=== PATIENT | female | born 2000 | race Hispanic/Latino ===

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

== ENCOUNTER 2020-05-23 19:54 | Inpatient (IN) | payer OTHER, SELFPAY ==
[~2020-05-23 19:54] MED LIST changes: +Bupivacaine HCl 0.25%/Epi 0.0005/PF 10 ML VIAL FS ONE; -Bupivacaine/Epinephrine 0.25% 30 ML VIAL ONE; +Sodium Chloride 0.9% (PF) 10 ML VIAL ONE
[2020-05-23 20:27] VITALS: BMI 27.8
[2020-05-23] MEDS ORDERED: hydrALAZINE 20 MG/ML VIAL SLOW IVP PRN (21:13)
--- NOTE | 2020-05-23 21:26 | PDOC.FPROB ---
FMR OB H&P: HPI - History of Present Illness Chief Complaint: Vaginal Bleeding History of Present Illness: Patient is a 19 year old, @ 37.5 weeks by LMP/27.6 week sono, LOR[place] 06/08/2019, PMHx of Late to care, Anemia of , VAVD and A1GDM who presents with complaints of bloody spotting that started 45 minutes TPA, accompanied by brownish discharge that started a few hours ago, and contractions x 2 days that became every 5-6 minutes this morning. She states that she has not had sex for 5 days. She has been feeling baby moving, denies loss of fluid. She has no history of STIs. Primary Care Physician: MARYAM Maxwell FMR OB H&P: Current - Care : 2 Para: 1 Gestational age: 37.5 weeks Due date: 06/08/2019 Dating Criteria: LMP/27.6 week US - OB Labs Blood type: O RH: positive Antibody Screen: negative HIV: negative RPR: negative HepBsAg: negative Rubella: non-immune Gonorrhea: negative Chlamydia: negative 3 hour GTT: 95/186/144 GBS: negative H&H: 35.7 Platelets: 229 - Additional Ultrasound Additional: 04/27/2020: normal follow up anatomic survery, current growth wnl for gestational age and measures 60th percentile, normal AF volume, BPP 8/8, placental location anterior - no signs of accreta/previa are seen FMR OB H&P: History - Past Medical History PMH: asthma (last used inhaler 2 years ago) COVID + 12/2019. - OB History OB History: VAVD at 40 weeks, October of 2018 - Surgical History Sx History: none - Social History Social History: no asthma, FMR OB H&P: Medications - Current Home Medications: Medication Instructions Recorded Confirmed Type Vitamin 1 tab PO DAILY #30 tab 11/14/18 Rx Allergies/Adverse Reactions: Allergies Allergy/AdvReac Type Severity Reaction Status Date / Time No Known Allergies Allergy Verified 05/23/20 20:23 FMR OB H&P: ROS - Review of Systems General: denies: fever/chills Eyes: denies: eye pain, vision changes ENT: denies: nasal congestion, rhinorrhea Cardiovascular: denies: chest pain, palpitation, edema Respiratory: denies: congestion Gastrointestinal: denies: abdominal pain, indigestion, nausea, vomiting, diarrhea, constipation Genitourinary (Female): reports: vaginal discharge, vaginal bleeding, contractions. denies: incontinence, dysuria Musculoskeletal: denies: pain, stiffness Neurologic: denies: numbness, syncope, weakness, headache Integumentary: denies: itching, rash Endocrine: denies: cold intolerance, heat intolerance Hematologic/Lymphatic: denies: prolonged or excessive bleeding, enlarged lymph nodes Psychological: denies: depression, anxiety FMR OB H&P: Vital Signs - Maternal Vital signs: BP 118/56, HR 79bpm, temp 98.5F - Heart Tones Baseline: 130 Variability: moderate Acceleration: present Deceleration: absent Category: category 1 [place] contractions every: 2-3 min FMR OB H&P: Physical Exam - Physical Exam General: NAD, awake, alert and oriented HEENT: normocephalic and atraumatic, PERRLA, EOMI, MMM Neck: supple, FROM Chest: non-tender to palpation Breast: symmetric, non-tender Heart: RRR, normal S1/S2, no murmurs/rubs/gallops General: CTAB, no respiratory distress Abdomen: soft, gravid Musculoskeletal: normal gait and station, pulses present Neurological: no tremor, no focal deficit Skin: no rash, good tugor Lymphatic: no unusual bruising or bleeding, no purpura Psychiatric: intact recent and remote memory, good judgement and insight, normal mood and affect - Pelvic Exam Deviation from normal: bloody show SVE: /-2 Membranes: intact Presentation: cephalic FMR OB H&P: A/P Disposition: Patient is a 19 year old, @ 37.5 weeks by LMP/27.6 week sono, LOR[place] 06/08/2019 who presents due to vaginal bleeding and accompanying contractions. Latent Labor, sIUP IOB labs reviewed, STI screening neg, Hep C neg, GBS neg /-2 @ 0930 Cat I strip, FHTs 130, +accels, -decels - continue monitoring - will recheck in 4-6 hours Vaginal Bleeding of Unknown Source Suspected 2/2 cervical change US 04/2604/27/2020: placental location anterior - no signs of accreta/previa are seen - continue monitoring A1GDM well-controlled at home - will get POC glucose Hx VAVD - aware TB risk - Recommended screening at HD Hx COVID 13 Jan 2020 - aware Discussion: Date/Time: 05/23/202125 This H&P was discussed with Dr. Francisco who agrees with the above documentation and plan.
[2020-05-23] MEDS ORDERED: Promethazine HCl 25 MG/ML VIAL IM PRN (21:49)
[2020-05-23] MEDS ORDERED: Ondansetron PF 4 MG/2 ML Vial IVP PRN (21:49)
--- NOTE | 2020-05-23 21:51 | PDOC.BPN ---
- Brief Progress Note OBGYN Flower Machine Operator: Patient seen and examined by me. See H&P. Admission to L&D.
--- NOTE | 2020-05-23 22:18 | HP ---
LOCATION: Triage A. The patient was evaluated at roughly 2129, it is now 2145. This is a patient of Clinic. The residents were the first to evaluate, and I have seen the patient and examined the patient myself at bedside. CHIEF COMPLAINT: Vaginal bleeding at 37 weeks and 5 days. HISTORY OF PRESENT ILLNESS: This is a 19-year-old, G2, P1, who is at 37 weeks and 5 days, who goes to the Clinic. She has a history of gestational diabetes and it is diet-controlled (A1). She had late entry to care with this , first receiving care at 27 weeks, and an ultrasound done at 27 weeks confirmed the last menstrual period, although it was close to the third trimester when it was done. She states that she has had some vaginal spotting and then brownish discharge and then very slight vaginal bleeding, and she has also noted some contractions since this afternoon. She last had intercourse about five days ago, and denies any leakage of fluid or recent trauma. She has good movement. She states the contractions are about every 5-6 minutes in the upper fundus and lower pelvis. She denies any other fevers or other issues. REVIEW OF SYSTEMS: GENERAL: No sick contacts. No fever or chills. CARDIOVASCULAR: No chest pain. PULMONARY: No shortness of breath. EXTREMITIES: No lower extremity unusual edema/swelling or pain. PAST OB HISTORY: She is a G2, P1, with a last delivery last year at 40 weeks with a vacuum extraction. PAST MEDICAL HISTORY: Remote history of asthma, but she has not used an inhaler for over two years. MEDICATIONS: vitamins. ALLERGIES: NONE. PAST SURGICAL HISTORY: None. SOCIAL HISTORY: Negative for alcohol, tobacco, or drug use. PHYSICAL EXAMINATION: VITAL SIGNS: Show a blood pressure of 118/56, pulse of 79, temperature of 98.5. GENERAL: She is in no acute distress. ABDOMEN: Gravid and soft. PELVIC: I performed a cervical exam and find her to be 2-3 cm dilated, about 50% effaced, -2 station. Bag of water intact, and the baby is cephalic. There is a slight amount of vaginal bleeding in the perineum, which is bright red, but there were no clots in the vagina, and I was not able to elicit any bleeding on the examination. I performed a vaginal examination because the 27-week ultrasound, per record, did not mention any previa. External monitor showed heart rate around 130-140 with moderate variability. I performed an abdominal rock with positive acceleration, and the baby had an acceleration with my vaginal examination. Kimberlyn had checked her before me and called her 2 cm dilated, 75% effaced, -2 station. This was done by the RN. LABORATORY DATA: lab review: She is GBS negative. ASSESSMENT: This is a 19-year-old, G2, P1, at 37 weeks and 5 days by a 27-week ultrasound, who has gestational diabetes, diet controlled, who is here for vaginal bleeding, NOS. I suspect early labor and I suspect the bleeding is coming from cervical change, although I cannot rule out a slight possibility of marginal placental separation. I have explained both of these to the patient at bedside. PLAN: 1. Admit to Labor and Delivery. 2. As she is chucky, we will hold off on Pitocin because I think she is laboring. 3. If she needs Pitocin, we will augment as long as she meets protocol criteria (number of contractions per 10 minutes, and as long as the FHTs are reassuring). 4. Plan reviewed with the Clinic residents on-call. Job ID: [id number] MTDD
--- NOTE | 2020-05-23 22:20 | PDOC.BPN ---
- Brief Progress Note Informed by Dr Richards (resident) that the patient was COVID pos Dec 2019. Noted.
[2020-05-23 22:51] LABS: Hemoglobin 13.3 g/dL (12.0-16.0); Mean Corpuscular HGB CONC 33.1 g/dL (32.0-36.0); Mean Corpuscular Hemoglobin 31.3 pg (25.0-35.0); Mean Corpuscular Volume 94.5 fL (78.0-98.0); Mean Platelet Volume 9.6 fL (7.4-10.4); Platelet Count 200 thou/uL (130-400); RBC Distribution Width 11.8 % (11.5-14.5); Red Blood Cell (RBC) Count 4.23 mill/uL (4.00-5.20); White Blood Cell (WBC) Count 8.4 thou/uL (4.8-10.8)
[2020-05-23 23:30] LABS: Syphilis Antibody Nonreactive (Nonreactive); Syphilis Antibody Index 0.03 S/CO (<1.00 Non-Reactive)
[2020-05-23 23:35] LABS: HBSAg Index 0.23 S/CO (0-0.99); Hep B Surf Ag Non-Reactive S/CO (NonReactive)
[2020-05-24] LABS: Glucose POC Confirmation 78 mg/dl (70-105)
[2020-05-24] MEDS ORDERED: Fentanyl 4 mcg/Bup 0.1% Cadd 100 ML ONE (02:46)
--- NOTE | 2020-05-24 02:51 | PDOC.LDPN ---
Labor & Delivery Progress Note - Subjective Subjective: comfortable - Objective Vital signs reviewed and normal: yes General: NAD, resting Uterine fundus: non tender Dilation: 5 Effacement: 75% Station: -2 FHT: category 1, variability present [place] contractions every: 4-5 min Other exam findings: bloody show Plan: continue plan of care -: Patient is a 19 year old, @ 37.5 weeks by LMP/27.6 week sono, LOR[place] 06/08/2019 who presents due to vaginal bleeding and accompanying contractions. Latent Labor, sIUP IOB labs reviewed, STI screening neg, Hep C neg, GBS neg 50/-2 @ 0930 /-2 @ 0230 Cat I strip, FHTs 120, +accels, -decels - continue monitoring - will recheck in 4 hours Vaginal Bleeding of Unknown Source Suspected 2/2 cervical change US 04/2604/27/2020: placental location anterior - no signs of accreta/previa are seen - trickle of blood down the leg during transition to restroom with small blood clot - continue monitoring A1GDM well-controlled at home - will get POC glucose Hx VAVD - aware TB risk - Recommended screening at HD Hx COVID 13 Jan 2020 - aware
[2020-05-24] MEDS ORDERED: Lactated Ringer's 500 ML IV PRN (03:24)
[2020-05-24] MEDS ORDERED: ePHEDrine 50 MG/ML VIAL SLOW IVP PRN (03:24)
[2020-05-24] MEDS ORDERED: Acetaminophen 325 MG TAB PO PRN (03:24)
[2020-05-24] MEDS ORDERED: Ondansetron PF 4 MG/2 ML Vial IVP PRN ×2 (03:24→10:12)
[2020-05-24] MEDS ORDERED: Naloxone HCl 0.4 mg/ml Vial IVP PRN ×2 (03:24)
[2020-05-24] MEDS ORDERED: diphenhydrAMINE 50 MG/ML VIAL IVP PRN (03:24)
[2020-05-24] MEDS ORDERED: Promethazine HCl 25 MG/ML VIAL IM PRN (03:24)
[2020-05-24] MEDS ORDERED: Fentanyl 4 mcg/Bupivacaine 0.1% Cassette 100 ML EPIDURAL SCH (03:30)
[2020-05-24] MEDS ORDERED: Communication Order-Pharmacy FS SCH (03:30)
[2020-05-24] MEDS ORDERED: Lidocaine 1% (PF) 30 ML VIAL SC PRN (04:15)
[2020-05-24] MEDS ORDERED: NS / Oxytocin 40 units/1000ml 1,000 ML IV PRN (04:15)
[2020-05-24 04:20] LABS: SARS-CoV-2 MS2 Positive; SARS-CoV-2 N Gene Negative; SARS-CoV-2 S Gene Negative; SARS-CoV-2 by NAA Not Detected (NotDetected); SARS-CoV-2 orf1ab Negative
[2020-05-24] MEDS ORDERED: Lactated Ringer's 1,000 ML IV SCH (04:30)
--- NOTE | 2020-05-24 06:56 | PDOC.LDPN ---
Labor & Delivery Progress Note - Subjective Subjective: comfortable - Objective Vital signs reviewed and normal: yes General: NAD, resting SVE: 7/100/-1 Dilation: 7 Effacement: 100% Station: -1 FHT: category 1, variable decelerations [place] contractions every: 2-3 min AROM: clear fluid Plan: continue plan of care -: Patient is a 19 year old, @ 37.5 weeks by LMP/27.6 week sono, LOR[place] 06/08/2019 who presents due to vaginal bleeding and accompanying contractions. Latent Labor, sIUP IOB labs reviewed, STI screening neg, Hep C neg, GBS neg 50/-2 @ 0930 580/-2 @ 0230 690/-1 @ 0430 100/-1 @ 0650 Cat I strip, FHTs 120, +accels, variable decels - continue monitoring - will recheck in 2 hours Vaginal Bleeding of Unknown Source Suspected 2/2 cervical change US 04/2604/27/2020: placental location anterior - no signs of accreta/previa are seen - trickle of blood down the leg during transition to restroom with small blood clot - continue monitoring A1GDM well-controlled at home - will get POC glucose Hx VAVD - aware TB risk - Recommended screening at HD Hx COVID 13 Jan 2020 - aware, negative test upon admission
[2020-05-24] MEDS ORDERED: Lidocaine 1% (PF) 30 ML VIAL ONE (07:12)
[2020-05-24] MEDS ORDERED: NS w/ Oxytocin 30 units 500 ML ONE ×2 (07:12→09:36)
--- NOTE | 2020-05-24 07:53 | PDOC.BPN ---
- Brief Progress Note Strip review with some occ variables...will have wholesale agronomist residenmt team place FSE to track, if recurrent and deep variables, consider amnioinfusion.
--- NOTE | 2020-05-24 08:34 | PDOC.OPDEL ---
OB Operative/Delivery Note Delivery Dr/Surgeon: Christopher/Michel Assist: Ezequiel Pre-Delivery Diagnosis: active labor Procedure/Post Delivery Dx: spontaneous vaginal delivery Anesthesia: epidural - Additional Findings/Plan Placenta delivered: spontaneous Repaired Obstetrical Laceration: none Estimated blood loss: 75mL Compilations/Other Findings: Delivering Physician: Christopher Attending: Michel Procedure: Spontaneous Vaginal Delivery Anesthesia: epidural EBL: 75 ml Pre-op Diagnosis: 1. Term intrauterine in labor 2. Hx of A1GDM, Hx of anemia of , late to care Post-op Diagnosis: 1. Term intrauterine , delivered 2. same as above Indications: A 19 y/o female presents in active labor Delivery Note: This is 19yo F @ 37.5 wks who delivered a viable M at 0818. Following an uneventful antepartum course, a vigorous male was delivered over an intact perineum in the occipitoanterior position. Anterior Shoulder and then remainder of the body delivered. Loose nuchal cordx1. The head was held down and mouth and nares were bulb suctioned. Cord clamped and cut and cord blood collected. Placenta delivered intact with a 3 vessel cord noted. Fundal massage was performed and the fundus was firm. The cervix and vagina were inspected and found to be free of lacerations. Infant went to nursery in good condition for routine care. Apgars were 8/9 at 1 & 5 minutes, respectively. Patient tolerated delivery well and went to after routine recovery/care. Post delivery plan: routine recovery Addendum - Attending - Attending Attestation Date/Time: 05/25/20 0618 I personally evaluated the patient and discussed the management with Dr. Fair I agree with the History, Examination, Assessment and Plan documented above with any addition or exceptions noted below. I was present and supervising for the 2nd and third stages of labor.
[2020-05-24] MEDS ORDERED: Zolpidem Tartrate 5 MG TAB PO PRN (10:12)
[2020-05-24] MEDS ORDERED: hydrALAZINE 20 MG/ML VIAL SLOW IVP PRN (10:12)
[2020-05-24] MEDS ORDERED: Milk Of Magnesia 30 ML UDCUP PO PRN (10:12)
[2020-05-24] MEDS ORDERED: NS / Oxytocin 40 units/1000ml 1,000 ML IV SCH (10:12)
[2020-05-24] MEDS ORDERED: Bisacodyl 10 MG SUPP PR PRN (10:12)
[2020-05-24] MEDS ORDERED: Lanolin Ointment 7 GM TUBE TOP PRN (10:12)
[2020-05-24] MEDS: Ibuprofen 800 MG TAB PO SCH ×3 (15:08→23:46)
[2020-05-24] MEDS: Ferrous Sulfate 325 MG TAB PO SCH (17:03)
[2020-05-24] MEDS: Docusate Calcium (SURFAK) 240 MG CAP PO SCH (23:47)
[2020-05-25] MEDS: Ibuprofen 800 MG TAB PO SCH (06:32)
[2020-05-25 08:05] VITALS: BP 106/52; TEMP 98
--- NOTE | 2020-05-25 08:48 | PDOC.OBPPN ---
FMR OB PN: Subj - Interval History Hospital Day: 1 Day: 1 Chief Complaint: s/p @ 37.6W EGA by LMP, c/w 27.6W US, @ 0818 on 05/24 Indentification: G2>P2 Interval History: No complaints FMR OB PN: Obj - Maternal Vital signs: BP: [106/52] HR: [74] RR: [20] Tmax: [98] Pox: [99]% on [Room Air] Wt: [62.5 kg] - Urine output I&O: 05/24/20 05/25/20 05/26/20 06:59 06:59 06:59 Intake Total 500 Output Total 270 Balance 230 - Lochia Lochia: Minimal - Pain Management Pain scale: 2 Intervention: oral medication FMR OB PN: Exam - Physical Exam General: NAD, awake, alert and oriented HEENT: normocephalic and atraumatic, PERRLA, EOMI, MMM, grossly normal vision, grossly normal hearing Neck: supple, FROM Breast: symmetric Heart: RRR, normal S1/S2, no murmurs/rubs/gallops, pulses present, no edema General: CTAB, no respiratory distress, good air movement, no rales/rhonchi, no wheezing, no retractions Deviation from normal: Appropriately tender, Uterine Fundus < Umbilicus Musculoskeletal: pulses present, FROM in all four extremities, no misalignment/asymmetry, no atrophy Neurological: no focal deficit : appropriately tender Lymphatic: no unusual bruising or bleeding, no purpura, no petechia Psychiatric: intact recent and remote memory, good judgement and insight, normal mood and affect FMR OB PN: A/P - Problem List (1) Gestational diabetes Status: Acute Code(s): O24.419 - GESTATIONAL DIABETES MELLITUS IN , UNSP CONTROL (2) Single in third trimester Status: Acute Code(s): Z34.93 - ENCNTR FOR SUPRVSN OF NORMAL PREG, UNSP, THIRD TRIMESTER (3) Term Status: Acute Code(s): Z34.90 - ENCNTR FOR SUPRVSN OF NORMAL , UNSP, UNSP TRIMESTER Disposition: Patient is a 19 y/o G2>P2 @ 37.5 weeks by LMP, c/w 27.6W US ([place]ORET[place]: 06/08/2019), who presents due to L&D for evaluation of vaginal bleeding and CTX. #Term SIUP, s/p -s/p @ 0818 on 05/24 -Nuchal cord x1 - easily reduced -QBL: 75 ml #Vaginal Bleeding of Unknown Source, resolved -Likely 2/2 cervical change -Minimal QBL w/o evidence of symptomatic anemia #A1GDM -Well-controlled at home -POC Glucose at goal #Hx COVID 19 -s/p infection in Dec 2019 -Aware PCP: [facility] Code: Full Diet: Regular Activity: Ad olivia VTE: None IVF: None Dispo: Patient appears well at this time with no worrisome signs or symptoms noted during evaluation. Patient is tolerating PO intake well with adequate voiding and stooling. Will continue routine PP recovery and plan for DC later today. Discussion: Date/Time: 05/25/20 7926 This H&P was discussed with [] and [] who agree with the above documentation and plan. Addendum - Attending - Attending Attestation Date/Time: 05/25/20 9507 I personally evaluated the patient and discussed the management with Dr. Camargo. I agree with the History, Examination, Assessment and Plan documented above. Meeting milestones for d/c.
[2020-05-25] MEDS: Ferrous Sulfate 325 MG TAB PO SCH (08:56)
[2020-05-25] MEDS: Docusate Calcium (SURFAK) 240 MG CAP PO SCH (08:57)
[2020-05-25] MEDS ORDERED: Adacel (T-DAP) 0.5 ML SYRINGE IM ONE (09:00)
[2020-05-25] MEDS ORDERED: Prenatal Vitamin 1 TAB PO SCH (09:00)
[2020-05-25 11:06] LABS: Hemoglobin 11.2 g/dL (12.0-16.0)
== END 2020-05-25 12:41 | disposition home or self-care (01) | DRG 807 ==
LOC: L&D/OP 19:54 → L&D 05-24 01:51 → 3SW 05-24 10:19
PROVIDERS: ADMIT Obstetrics & Gynecology; ATTEND Obstetrics & Gynecology
PROC: 10E0XZZ Delivery of Products of Conception, External Approach (ICD-10-PCS; principal; 2020-05-24)
DX: O24.420 Gestational diabetes mellitus in childbirth, diet controlled (principal); Z37.0 Single live birth; Z20.828 Contact with and (suspected) exposure to other viral communicable diseases; J45.909 Unspecified asthma, uncomplicated; O99.52 Diseases of the respiratory system complicating childbirth; O99.02 Anemia complicating childbirth; D64.9 Anemia, unspecified; O67.9 Intrapartum hemorrhage, unspecified; Z3A.37 37 weeks gestation of pregnancy
CPT/HCPCS: 36415; 51702; 82947; 85014; 85018; 85027; 86780; 86850; 86900; 86901; 87340; 87635; 99285; J2590; U0003